=== PATIENT | female | born 1960 | race Caucasian/White ===

== ENCOUNTER → 2019-08-26 | Outpatient (CLI) | payer OTHER ==
[2016-01-20 13:04] VITALS: BP 121/75
[~2019-08-26] MED LIST: ACET325T9 PO; FAMO20TA5 PO; FEXO60TA25 PO; LEVO75TA PO; LEVO75TA5 PO; OXYC1TAB15 PO
--- NOTE | 2019-08-26 15:39 | EKG ---
[facility] [address] [place] [address] Test Date: 2019-08-26 Test Time: 15:36:36 Pat Name: SONDRA MONSALVE Department: Room: Gender: F Counter Sales Person: : 1960 Requested By: ALLISON BOOKER Order Number: [id number] Reading MD: Anton Clancy MD Measurements Intervals [place] Rate: 91 P: 38 FL: 148 QRS: 37 QRSD: 72 T: 31 QT: 358 QTc: 442 Interpretive Statements SINUS RHYTHM Electronically Signed On 08-27-2019 9:31:14 CUSTOMER SUCCESS [employer]VOCATE by Anton Clancy MD
--- NOTE | 2019-08-26 17:30 | RAD ---
CHEST PA LATERAL History: Preop hysterectomy Comparison: None. Findings: 2 views of the chest are submitted. There is no infiltrate, pneumothorax, or effusion. Pericardial cardiac silhouette is within normal limits in size. There is cervical fusion hardware. There is somewhat tortuous thoracic aorta. Impression: 1. There is no radiographic evidence of acute cardiopulmonary disease. Electronically signed by: Daryl Mendez MD (08/26/2019 5:27 PM) [facility]
== END | disposition home or self-care (01) ==
LOC: SURGPAT 15:16
PROVIDERS: ATTEND Obstetrics & Gynecology
DX: Z01.818 Encounter for other preprocedural examination (principal); E03.9 Hypothyroidism, unspecified; Z88.8 Allergy status to other drugs, medicaments and biological substances; Q25.46 Tortuous aortic arch
CPT/HCPCS: 71046; 93005

== ENCOUNTER 2019-09-03 05:47 | Observation (INO) | payer OTHER ==
[~2019-09-03] VITALS: Ht 152.4 cm; Wt 86.6 kg
[2019-09-03] MEDS ORDERED: BUPIVACAINE-EPI 0.25%-1:200000 MPF 30 ML VIAL. INJ ONE (06:30)
[2019-09-03] MEDS ORDERED: SCOPOLAMINE 1.5MG PATCH. TD ONE (07:00)
[2019-09-03] MEDS ORDERED: LIDOCAINE 1% PF 2 ML VIAL. ID PRN (07:00)
[2019-09-03] MEDS ORDERED: ONDANSETRON PF 4 MG/2 ML VIAL. IV PRN ×2 (07:00→10:00)
[2019-09-03] MEDS ORDERED: fentaNYL PF VIAL 100 MCG/2 ML VIAL IV PRN (07:00)
[2019-09-03] MEDS ORDERED: PROCHLORPERAZINE 10 MG/2 ML VIAL. IV PRN (07:00)
[2019-09-03] MEDS ORDERED: IV RINGERS,LACTATED 1000ML 1,000 ML IV SCH (07:00)
[2019-09-03] MEDS ORDERED: LIDOCAINE 2% PF 5 ML VIAL. ONE (07:23)
[2019-09-03] MEDS ORDERED: DEXAMETHASONE SOD PHOS 4 MG/ML VIAL ONE (07:23)
[2019-09-03] MEDS ORDERED: PROPOFOL 20 ML IV ONE (07:23)
[2019-09-03] MEDS ORDERED: fentaNYL PF VIAL 100 MCG/2 ML VIAL ONE ×2 (07:23→08:09)
[2019-09-03] MEDS ORDERED: FAMOTIDINE 20 MG/2 ML VIAL ONE (07:23)
[2019-09-03] MEDS ORDERED: ONDANSETRON PF 4 MG/2 ML VIAL. ONE (07:23)
[2019-09-03] MEDS ORDERED: MIDAZOLAM HCL/PF 2 MG/2 ML VIAL. ONE (07:24)
[2019-09-03] MEDS ORDERED: ROCURONIUM 50 MG/5 ML VIAL. ONE (07:25)
[2019-09-03] MEDS ORDERED: diphenhydrAMINE 50 MG/ML VIAL ONE (07:36)
[2019-09-03] MEDS ORDERED: ESTROGENS, CONJ VAGINAL CREAM 30GM TUBE. ONE (07:52)
[2019-09-03] MEDS ORDERED: INDIGOTINDISULFONATE SODIUM 40 MG/5 ML AMPUL. ONE (07:53)
[2019-09-03] MEDS ORDERED: ceFAZolin 2GM PREMIX 2 GM/50 ML BAG IV ONE (08:00)
[2019-09-03] MEDS ORDERED: GLYCOPYRROLATE 1 MG/5 ML VIAL. ONE (08:19)
[2019-09-03] MEDS ORDERED: NEOSTIGMINE METHYLSULFATE 5 MG/5 ML SYRINGE. ONE (08:19)
[2019-09-03] MEDS ORDERED: ePHEDrine PF IN SALINE 50 MG/10 ML SYRINGE. IV ONE (08:19)
[2019-09-03] MEDS ORDERED: PHENYLEPHRINE in 0.9% NACL PF 1 MG/10 ML SYRINGE. IV ONE (08:19)
[2019-09-03] MEDS ORDERED: SEVOFLURANE > 120 MINUTES. IH ONE (09:43)
[2019-09-03] MEDS ORDERED: KETOROLAC 30 MG/ML VIAL. ONE (09:43)
--- NOTE | 2019-09-03 09:58 | PDOC ---
BRIEF OPERATIVE NOTE Date: Sep 03, 2019 Pre-Op Diagnosis fibroid uterus, endometrial thickening on sonogram Post-Op Diagnosis same plus left ovarian enlargement Procedure Performed LAVH/BSO Surgeon Dr. Rosanne Bermudez Real Estate Broker Associate MEENAKSHI Payne Anesthesiologist Dr. Olmedo Anesthesia Type: General Blood Loss 50cc IV Fluid 1300cc Urine Output 200cc via fisher Specimens Obtained cervix, uterus, attached right ovary and detached enlarged left ovary Findings left ovarian enlargement, enlarged RV fibroid uterus, small normal right ovary; no significant pelvic adhesive disease Complications none Operative Note [id number] ROSANNE BERMUDEZ MD Sep 03, 2019 09:58
[2019-09-03] MEDS ORDERED: 0.9 % SODIUM CHLORIDE 10 ML DISP.SYRIN. IV PRN (10:00)
[2019-09-03] MEDS ORDERED: MAG HYDROX/ALUMINUM HYD/SIMETH 30 ML ORAL.SUSP PO PRN (10:00)
[2019-09-03] MEDS ORDERED: ZOLPIDEM 5 MG TABLET. PO PRN (10:00)
[2019-09-03] MEDS ORDERED: SIMETHICONE 80 MG TAB.CHEW PO PRN (10:00)
[2019-09-03] MEDS ORDERED: diphenhydrAMINE 50 MG/ML VIAL IV PRN (10:00)
[2019-09-03] MEDS ORDERED: MORPHINE SULFATE 2 MG/ML VIAL. IV PRN (10:00)
[2019-09-03] MEDS ORDERED: NALOXONE 0.4 MG/ML VIAL. IV PRN (10:00)
[2019-09-03] MEDS ORDERED: CALCIUM CARBONATE 500 MG TAB.CHEW PO PRN (10:00)
[2019-09-03] MEDS ORDERED: LACTULOSE 20 GM/30 ML SOLUTION. PO PRN (10:00)
[2019-09-03] MEDS ORDERED: diphenhydrAMINE HCL 25 MG CAPSULE PO PRN (10:00)
[2019-09-03] MEDS ORDERED: MAGNESIUM HYDROXIDE 2,400 MG/30 ML ORAL.SUSP. PO PRN (10:00)
[2019-09-03] MEDS: fentaNYL PF VIAL 100 MCG/2 ML VIAL IV PRN ×2 (10:36→10:47)
--- NOTE | 2019-09-03 10:55 | OP ---
DATE OF SURGERY: 09/03/2019 PREOPERATIVE DIAGNOSES: Enlarged fibroid uterus with endometrial thickening on sonogram. POSTOPERATIVE DIAGNOSES: Enlarged fibroid uterus with endometrial thickening on sonogram with left ovarian enlargement. PROCEDURE: Laparoscopic-assisted vaginal hysterectomy, bilateral salpingo-oophorectomy. SURGEON: Allison Bermudez MD CHECKERING MACHINE ADJUSTER: MEENAKSHI Willett ANESTHESIOLOGIST: Percy Olmedo MD ANESTHESIA: General. ESTIMATED BLOOD LOSS: 50 mL. URINE OUTPUT: 200 mL via Kimball catheter. INTRAVENOUS FLUIDS: 1300 mL of Crystalloid. SPECIMENS: Cervix, uterus, small attached right ovary and tube, enlarged detached left ovary and tube. FINDINGS: Left ovarian enlargement, enlarged retroverted fibroid uterus, normal small right ovary. No significant pelvic adhesive disease. Normal appearing appendix was also seen. COMPLICATIONS: None. DESCRIPTION OF PROCEDURE: This patient was taken to the operating room where general anesthesia was placed. The patient was placed in the dorsal lithotomy position in [facility]. The patient's abdomen and vagina were both prepped and draped in the normal sterile fashion and a Kimball catheter had been inserted under sterile technique. Upon my arrival, a timeout was performed. Once everyone agreed, a bivalve speculum was placed in the patient's vagina. A single-tooth tenaculum was used to grasp the anterior lip of the cervix. A 10 mL of 0.25% Marcaine with epinephrine was used to circumferentially inject around the cervix for both hemodissection and hemostatic purposes later. Once this was done, the Valtchev uterine manipulator was placed through the endocervical os, locked on the single tooth tenaculum and the bivalve speculum was then removed. However, of significant note, this patient was so small and atrophic that I could hardly even get the Valtchev in with the speculum opened. I had enlarged the speculum just to get it in, she was that narrow. Even though she had had 2 spontaneous vaginal deliveries, she was small and atrophic. So, getting even in, the Valtchev was difficult with the speculum, and there was not that much room. Once we were in, all gloves were discarded and changed though. Attention was then turned to the abdomen where a supraumbilical skin incision was made with the scalpel. It was carried down through the underlying layer to the fascia with a curved Zoë. The 5 mm Visiport was used to directly enter the abdominal cavity. Opening patient pressure was 2-3 mmHg. Carbon dioxide gas was used to then appropriately insufflate the abdominal cavity to maintain a pressure of 15 mmHg. It was eventually turned up to 16-17 just to maintain the pneumo, as she had a slightly heavier abdominal wall and my pressures were topping out at 1314 and not staying up enough. So, they just turned it up to 16 or 17 to maintain the pressures at 15 or 16. Once in, she was placed in Trendelenburg position and obviously intraabdominal placement was confirmed via the laparoscope. She was placed in Trendelenburg, left lower quadrant and right lower quadrant ports were placed, first finding an area clear of any vasculature transilluminating the abdominal wall, injecting it, making the incision and placing the trocar in. A 4-5 mL of air was placed in the trocar cuff. Then, the camera was moved to one of the lateral ports to look at the midline, it was in and clear. So, that trocar cuff was also insufflated with 4-5 mL of air. Once this was done, it was placed back in the midline. The patient was in steep Trendelenburg. The bowel was moved up out of the cul-de-sac posteriorly. There were no adhesions behind the uterus, but it was a very enlarged retroverted fibroid uterus, right ovary atrophic small and tube normal. You could elevate those, see the ureter clearly coursing well beneath there. Left ovary was enlarged though. So, this one had to be manipulated more and moved up, but the ovary was very clearly down out of the way and could clearly be seen. She had good anatomy and clear as far as in the pelvis. It just that left ovary was enlarged and difficult to manipulate, but once it was up, the LigaSure was used to cauterize the left infundibulopelvic ligament, cauterizing and cutting it and then working our way under the tube to the uterus and then crossing the left round ligament, cauterizing and cutting with the LigaSure. Once this was done, the same exact thing was done on the right side. Again, both ureters had been identified, staying high on the IP ligament well above the level of the ureter, cauterizing and removing both tubes and ovaries per patient's request, and then crossing the right round ligament. The right side could be seen more clearly, so it was pushed in cephalad to the head of the bed and over kind of to the left and I was able to start the bladder flap on the right side, elevating it with the [place] and using the monopolar hook to cut across. I was able to cut across anteriorly and make the bladder flap sharply. Once this was done, I went over to the left side and met it. I was able to clearly see the uterine vessels on the right side. They were cauterized and cut and then going down hugging the cervix posteriorly through the cardinal and broad ligaments, taking small bites staying inside that pedicle down to the level of the uterosacrals. On the left side, once the bladder flap was created, I just hugged the side of the uterus and kind of went straight down from my side on the right of the patient crossing over that left side, hugging and staying vertical on the uterus and cervix down to the level of the uterosacrals again pushing cephalad on the cervix and uterus toward the head of the bed, elongating that cervix, making sure the bladder was down and taking the vasculature down. At this point, the uterus was completely free. At this point everything was still attached; cervix, uterus, both tubes and ovaries. All instruments were removed and attention was turned vaginally. The single tooth and Valtchev were removed. A weighted speculum was placed in the patient's vagina. Thyroid Hallie clamps were placed on the anterior and posterior lips of the cervix respectively. A scalpel was used to make a circumferential incision. I did have a lot more descent after taking down things from above to see vaginally and was able to do this. The tip of the suction was used to gently push up the anterior bladder peritoneum and the bladder flap was created sharply, moving it up and then an open Ray-Quinton 4 x 4 was used to gently push it up and I entered the anterior cul-de-sac. The Ray-Quinton was removed and the curved Johana was placed in the anterior cul-de-sac. The cervix was elevated and the posterior cul-de-sac was sharply entered with Menendez scissors. A #0 Vicryl stitch was used to secure the posterior peritoneum here to the vaginal cuff, tagging it with a curved Zoë clamp and cutting and passing the needle off. Once this was done, the short weighted vaginal speculum was removed and replaced with the long weighted Chad speculum in the posterior cul-de-sac. Curved Zhou clamps x 2 were placed on the patient's left uterosacral ligament where they were doubly clamped with curved Heaneys, cut with Menendez scissors and suture ligated x 2 with 0 Vicryl. Second one was taken through the vaginal cuff securing uterosacral ligament to the vaginal cuff, tagging it with a straight Zoë clamp and cutting and passing the needle off. This was done exactly the same on the right side, double clamping the uterosacrals with curved Zhou's, cutting with curved Menendez scissors and suture ligating x 2 with 0 Vicryl. Second one taken through the vaginal cuff, securing uterosacral ligament to the vaginal cuff, tagging it with a straight Zoë clamp and cutting and passing the needle off. Once this was done, the remaining pedicles on both sides were delineated with the right angle and the vaginal LigaSure was used to cauterize and cut them. Once it was done, I had to start morcellating the uterus as it would not come out as it was so enlarged for the small vagina, but I did make sure that we had the entire vasculature and it was completely free. I was able to get the cervix and the lower uterine segment, and then I put the tenaculums on the upper part and as I was cutting, it started releasing and coming through and the cervix was cut off, but the rest of the uterus with the right tube and ovary were delivered in total. The left ovary did not come out with the uterus and I could see it, but when I went to go grab it, it slipped above. So, we went above and found it laparoscopically, grabbed it with the atraumatics and locked it on there and pushed it down vaginally, so I could grab it from there as it was enlarged and round. It just kept kind of went to slide away like a ball and there was no good place to grab it. So, I ended up using the laparoscopic instrument to pass it vaginally, my certified physical therapist assistant then pushed it down to me below and then once I got it out, I had the anterior bladder peritoneum grasped with a long Allis. I was able to remove the long weighted speculum and replaced it with the short weighted vaginal speculum and used a sponge stick to examine all the pedicles. Once they were assured to be dry, 2-0 Vicryl was taken through the anterior bladder peritoneum, left uterosacral ligament, posterior peritoneum and right uterosacral ligament, thus closing the peritoneum in a pursestring like fashion. Once this was done, the right and left uterosacral tags were clipped. The cuff was closed in an anterior to posterior running locked fashion with a full length 2-0 Vicryl and tied to that posterior cuff tag. It looked great with excellent results. There was a sidewall laceration on the right side that was repaired with 2-0 Vicryl in a running locked fashion with excellent results. I did place Premarin cream over that and the cuff, as she was just extremely atrophic, dry, and narrow and just wanted to tear from anything even just like that retractor being in. Once this was done, all gloves were discarded and changed. Attention was turned back above where gas was reinsufflated. She was placed back in Trendelenburg. Copious irrigation revealed hemostasis. Tisseel was placed over the pedicles with excellent results. The right and left pericolic gutters were clear and the gas was released from all 3 trocars from the trocar cuff. The right and left lower quadrant ports were removed under direct visualization. These too were hemostatic. The cuff and cul-de-sac remained hemostatic. Gas was released from the umbilical port and then it was removed as well. All three port sites were being closed with 4-0 nylon and she was awakened from anesthesia. All the port sites were closed with 4-0 nylon at the skin and she is being brought to recovery room in stable condition. ALLISON BERMUDEZ MD DR: ROQUE/aden JOB#: [id number] / [id number]
[2019-09-03 11:30] VITALS: BP 116/75
[2019-09-03 11:45] VITALS: BP 112/78
[2019-09-03 12:15] VITALS: BP 116/74
[2019-09-03 12:45] VITALS: BP 112/78
[2019-09-03 13:45] VITALS: BP 116/75
[2019-09-03] MEDS: MORPHINE IR 15 MG TABLET PO PRN ×2 (15:00→21:36)
[2019-09-03 20:00] VITALS: BP 121/69
[2019-09-04 01:55] VITALS: BP 92/54
[2019-09-04] MEDS: MORPHINE IR 15 MG TABLET PO PRN (05:44)
[2019-09-04] MEDS ORDERED: LEVOTHYROXINE 75 MCG TABLET PO SCH (06:00)
[2019-09-04 06:04] VITALS: BP 105/67
[2019-09-04 06:09] LABS: CALCIUM 8.6 mg/dL (8.5-10.1); CREATININE 0.8 mg/dL (0.6-1.0); GFR 73.7; POTASSIUM 4.8 mmol/L (3.5-5.1)
[2019-09-04 08:00] VITALS: BP 110/72
--- NOTE | 2019-09-04 08:49 | PDOC ---
SURGICAL PROGRESS NOTE Subjective Doing well without complaints. Tolerating regular diet, ambulating well, voiding without catheter, scant vb with wiping, +flatus, no N/v. Wants to go home today Vital Signs Vital Signs Date Time Temp Pulse Resp B/P (MAP) Pulse Ox O2 Delivery O2 Flow Rate FiO2 09/04/19 06:04 97.8 65 18 105/67 (80) 95 Room Air 97.8 09/03/19 13:45 2.0 I&O Intake and Output 09/04/19 07:00 Intake Total 2800 ml Output Total 700 ml Balance 2100 ml Intake Oral 1200 ml IV Total 1600 ml Output Urine Total 650 ml Estimated Blood Loss 50 ml PATIENT HAS A NELSON: No General: Alert, Oriented X3, Cooperative, No acute distress HEENT: Atraumatic Heart: Regular rate Abdomen: Normal bowel sounds, Soft, No tenderness Extremities: No clubbing, No cyanosis, No edema Skin: No rashes, No breakdown Neuro: Normal gait, Normal speech Psych/Mental Status: Mental status NL, Mood NL Labs Laboratory Tests Test 09/04/19 05:30 Hematocrit 39.2 % (36.0-47.0) Sodium Level 141 mmol/L (136-145) Potassium Level 4.8 mmol/L (3.5-5.1) Chloride Level 105 mmol/L (98-107) Carbon Dioxide Level 26 mmol/L (21-32) Anion Gap 10 (6-14) Blood Urea Nitrogen 10 mg/dL (7-20) Creatinine 0.8 mg/dL (0.6-1.0) Estimated GFR (Cockcroft-Gault) 73.7 Glucose Level 120 mg/dL (70-99) Calcium Level 8.6 mg/dL (8.5-10.1) Laboratory Tests Test 09/04/19 05:30 Hematocrit 39.2 % (36.0-47.0) Sodium Level 141 mmol/L (136-145) Potassium Level 4.8 mmol/L (3.5-5.1) Chloride Level 105 mmol/L (98-107) Carbon Dioxide Level 26 mmol/L (21-32) Anion Gap 10 (6-14) Blood Urea Nitrogen 10 mg/dL (7-20) Creatinine 0.8 mg/dL (0.6-1.0) Estimated GFR (Cockcroft-Gault) 73.7 Glucose Level 120 mg/dL (70-99) Calcium Level 8.6 mg/dL (8.5-10.1) I have reviewed the following labs, vitals, nursing Cardiovascular: No pertinent hx Pulmonary: No pertinent hx GI: No pertinent hx Heme/Onc: No pertinent hx Psych: No pertinent hx Rheumatologic: No pertinent hx Infectious disease: No pertinent hx ENT: No pertinent hx Renal/: No pertinent hx Endocrine: Diabetes Dermatology: No pertinent hx Assessment/Plan POD#1 s/p LAVH/BSO Routine PO Care NPV x 6 weeks light/limited x 2 weeks already has pain script at home NO driving on narcotic pain meds call or return sooner for any other questions or concerns not limited to but including pain unrelieved with pain meds, increased or unexplained vb or T>100.4 keep scheduled follow up in one week as scheduled ALLISON BOOKER MD Sep 04, 2019 08:49
--- NOTE | 2019-09-04 09:05 | PDOC3 ---
Discharge Summary Visit Information Date of Admission: Sep 03, 2019 Date of Discharge: Sep 04, 2019 Final Diagnosis enlarged fibroid uterus, left ovarian enlargement and endometrial thickening seen on sonogram Brief Hospital Course Allergies Allergies Coded Allergies Type Severity Reaction Last Updated Verified hydrocodone Allergy Intermediate 09/03/19 Yes oxycodone Allergy Intermediate 09/03/19 Yes azithromycin Adverse Reaction Intermediate Nausea and Vomiting 09/03/19 Yes Vital Signs Vital Signs Date Time Temp Pulse Resp B/P (MAP) Pulse Ox O2 Delivery O2 Flow Rate FiO2 09/04/19 06:04 97.8 65 18 105/67 (80) 95 Room Air 97.8 09/03/19 13:45 2.0 Lab Results Laboratory Tests Test 09/04/19 05:30 Hematocrit 39.2 % (36.0-47.0) Sodium Level 141 mmol/L (136-145) Potassium Level 4.8 mmol/L (3.5-5.1) Chloride Level 105 mmol/L (98-107) Carbon Dioxide Level 26 mmol/L (21-32) Anion Gap 10 (6-14) Blood Urea Nitrogen 10 mg/dL (7-20) Creatinine 0.8 mg/dL (0.6-1.0) Estimated GFR (Cockcroft-Gault) 73.7 Glucose Level 120 mg/dL (70-99) Calcium Level 8.6 mg/dL (8.5-10.1) Laboratory Tests Test 09/04/19 05:30 Hematocrit 39.2 % (36.0-47.0) Sodium Level 141 mmol/L (136-145) Potassium Level 4.8 mmol/L (3.5-5.1) Chloride Level 105 mmol/L (98-107) Carbon Dioxide Level 26 mmol/L (21-32) Anion Gap 10 (6-14) Blood Urea Nitrogen 10 mg/dL (7-20) Creatinine 0.8 mg/dL (0.6-1.0) Estimated GFR (Cockcroft-Gault) 73.7 Glucose Level 120 mg/dL (70-99) Calcium Level 8.6 mg/dL (8.5-10.1) Brief Hospital Course Ms. Collier is a 59 old female who presented with enlarged uterus and end ometrial thickening seen on sonogram. She underwent and LAVH/BSO without complications yesterday. She has had an unremarkable postoperative course and is voiding well, ambulating well, tolerating po and wanting to go home. Assessment Assessment POD#1 s/p LAVH/BSO Routine PO Care NPV x 6 weeks light/limited x 2 weeks already has pain script at home NO driving on narcotic pain meds call or return sooner for any other questions or concerns not limited to but including pain unrelieved with pain meds, increased or unexplained vb or T>100.4 keep scheduled follow up in one week as scheduled Discharge Information Condition at Discharge: Improved Follow Up: Weeks Disposition/Orders: D/C to Home Scheduled Acetaminophen (Tylenol) 325 Mg Tablet, 1,000 MG PO HS for pain, (Reported) Entered as Reported by: Rosalee Nelson on 08/26/191534 Last Taken: Unknown Dose on 09/01/19 Last Action: HELD on 09/03/19735 by ALLISON BOOKER Fexofenadine Hcl (Angelia Allergy) 60 Mg Tablet, 1 TAB PO DAILY for allergy symptoms for 30 Days, #30 Ref 0 (Reported) Entered as Reported by: Rosalee Nelson on 08/26/191534 Last Taken: Unknown Dose on 09/02/19 Last Action: HELD on 09/03/19735 by ALLISON BOOKER Levothyroxine Sodium (Levothyroxine Sodium) 75 Mcg Tablet, 1 TAB PO DAILY, #30 Ref 5 (Reported) Entered as Reported by: YASMANY ELLIS on 01/20/16927 Last Action: HELD on 09/03/19735 by ALLISON BOOKER Levothyroxine Sodium (Synthroid) 75 Mcg Tablet, 1 TAB PO DAILY for low , #30 Ref 5 (Reported) Entered as Reported by: Rosalee Nelson on 08/26/191534 Last Taken: Unknown Dose on 09/03/19 0500 Last Action: Continued on 09/03/19735 by ALLISON BOOKER Patient Instructions Patient Instructions POD#1 s/p LAVH/BSO Routine PO Care NPV x 6 weeks light/limited x 2 weeks already has pain script at home NO driving on narcotic pain meds call or return sooner for any other questions or concerns not limited to but including pain unrelieved with pain meds, increased or unexplained vb or T>100.4 keep scheduled follow up in one week as scheduled ALLISON BOOKER MD Sep 04, 2019 09:05
--- NOTE | 2019-09-07 09:06 | PATHOLOGY ---
[facility] Accession Number: [id number] . 01 Material submitted: . uterus - CERVIX,UTERUS,BILATERAL TUBES, BILATERAL OVARIES . 01 Clinical history: . Endometrial thickening. . 02 Diagnosis: Uterus and attached bilateral fallopian tubes and single ovary, and separate detached ovary, hysterectomy with bilateral salpingo-oophorectomy: - Leiomyomas, uterine corpus, multiple, the largest measuring 5.8 cm in greatest dimension (uterine weight 200 grams). - Atrophic pattern endometrium with focal chronic inflammation and squamous metaplasia. - Adenomyosis, uterine corpus, focal. - Status post bilateral tubal ligation. - Fibroma of ovary, side indeterminate, measuring 5.2 cm in greatest dimension. - Involutional changes of opposite ovary. . (JPM:mm; 09/04/2019) [facility] 09/04/2019 1642 Local . 02 Comment: There is no evidence of malignancy. . (JPM:mm; 09/04/2019) . 02 Electronically signed: . Clarence Puckett MD, Pathologist NPI- [id number] . 01 Gross description: . Received in formalin labeled "Amira, Jannette, cervix, uterus, bilateral tubes, bilateral ovaries" is a fragmented hysterectomy specimen weighing entirely 200 g. The uterus is received in two portions measuring 13.2 x 7.5 x 5.5 cm. The anterior and posterior aspects cannot be definitively oriented. The ectocervix is pink-dinero and glistening with focal hemorrhage and a slitlike cervical os measuring 1.5 cm. The serosa is pink-dinero and smooth with focal hemorrhagic areas. Upon opening the specimen, the endocervical canal measures 2.2 x 1.2 cm. The endometrial cavity is fragmented, and cannot be definitively measured. The average endometrial thickness is 0.1 cm. The average myometrial thickness cannot be definitively measured. Multiple dinero-white whorled leiomyomata are present, measuring from 0.6-5.8 cm in greatest dimension. No hemorrhage or necrosis is identified. . There are two attached pink-dinero fimbriated fallopian tubes, which cannot be oriented, measuring 5.5 x 0.8 cm and 5.6 x 0.7 cm. Both fallopian tubes display dinero-white rubbery sterilization devices at the proximal aspects. The fallopian tubes are sectioned to reveal pinpoint lumens. The first described fallopian tube has an attached dinero-white cerebriform ovary weighing 3 g and measuring 3.2 x 2.0 x 0.8 cm. The ovary is sectioned to reveal a dinero-white unremarkable cut surface. The second fallopian tube does not have an attached ovary. A detached ovary is present within the container, weighing 41 g, and consisting of a 1.9 x 1.0 x 0.7 cm area of dinero-white unremarkable ovarian parenchyma and a dinero-white solid nodule measuring 5.2 x 4.5 x 3.3 cm. The solid nodule displays a ragged defect area measuring 1.7 x 1.6 cm, which is inked green. Upon sectioning, the nodule has a dinero-white whorled cut surface. . Financial Assistance Specialist sections are submitted as follows: A1-A2 12:00 and 6:00 cervix A3-A4 anterior and posterior endometrium A5 used equipment sales representative fallopian tube 1 A6 used equipment sales representative ovary 1 A7 used equipment sales representative fallopian tube 2 A8-A10 used equipment sales representative ovary 2 and attached nodule A11-A12 used equipment sales representative leiomyomata ([facility]; 09/03/2019) [facility] 09/03/2019 1813 Local . 02 Pathologist provided ICD-10: D25.9, N71.1, N80.0, D27.9 . 02 CPT . 025541, 508310 Specimen Comment: A courtesy copy of this report has been sent to [phone] Specimen Comment: Report sent to Performed at: 01 [facility] [address] [id number] MD Prosper Newton MD Phone: [phone] Performed at: 02 [facility] [address] [place], [place] [id number] MD Clarence Puckett MD Phone: [phone]
== END 2019-09-04 09:56 | disposition home or self-care (01) ==
LOC: SURG 05:47 → 3 NORTH 11:00
PROVIDERS: ADMIT Obstetrics & Gynecology; ATTEND Obstetrics & Gynecology
DX: D25.9 Leiomyoma of uterus, unspecified (principal)
CPT/HCPCS: 36415; 58552; 80048; 85014; 86850; 86900; 86901; 88307; A7015; G0378; G0379; J0171; J0696; J1100; J1200; J1885; J2001; J2250; J2370; J2405; J2704; J2710; J3010; J3490; J7030; J7120